=== PATIENT | male | born 1985 | race Caucasian/White ===

== ENCOUNTER 2016-10-04 17:34 | Emergency (ER) | payer MEDICARE, OTHER ==
[~2016-10-04] VITALS: Ht 175.3 cm; Wt 148.3 kg
[~2016-10-04 17:34] MED LIST: BUPR1FIL3 SL; OLME1TAB PO; PANT20TA2 PO
--- NOTE | 2016-10-04 18:35 | PHYS DOC ---
General Chief Complaint: BACK PAIN OR INJURY Stated Complaint: LEFT SIDE BACK PAIN Time Seen by MD: 18:29 Source: patient Problems: History of Present Illness Initial Comments Patient here for left thoracic back pain. Patient states it started several hours prior to arrival in the emergency department. He says it feels sharp pain , like a muscle strain, just to the left of the spine in the lower thoracic region. 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 He's had no fever or chills with this. There is no runny nose or sore throat. There is no shortness of breath, though does seem to hurt more when he takes a deep breath. Also hurts more when he hangs down his left arm. He has no nausea or vomiting. There is no abdominal pain. There's no change amount of bladder habits. States he has some mild swelling of the lower extremities but this is chronic for him due to being up on his feet all day and him being a larger person. There are no acute focal extremity or neurologic complaints. As noted, there is no history of injury or trauma to the area. Patient really done nothing at home for this and notes no other increasing or decreasing factors other than as described. His main concern today is to rule out pulmonary emboli. He says that last year he was admitted to the hospital with similar type chest pain. He was told initially that he had a saddle embolus and was going to have to have surgery, but the next day was told that there was no emboli and he was able to go home. He thinks this pain is similar and is concerned about the possibility of PE. Patient's past medical history is remarkable for hypertension. He is also on Suboxone therapy and has been for a number of years. He is a nonsmoker and nonuser of ethanol. Allergies: Coded Allergies: Penicillins (Verified Allergy, Unknown, Unknown, 10/15/13) Past Medical History Medical History: hypertension, other Surgical History: no surgical history Family History Significant Family History: no pertinent family hx Social History Smoker: non-smoker Alcohol: none Drugs: none Review of Systems All Other Systems: Reviewed and Negative Physical Exam General Appearance: WD/WN, no apparent distress Neck: full range of motion, supple, normal inspection Respiratory: lungs clear, normal breath sounds, no respiratory distress, other Cardiovascular: regular rate, rhythm Gastrointestinal: non tender, soft Back: no CVA tenderness, no vertebral tenderness, other Extremities: non-tender, pedal edema Neurologic/Psychiatric: alert, normal mood/affect, oriented x 3 Skin: normal color Comments Generally he is well-developed well-nourished grossly obese white male in no acute distress. Vitals are as noted. Pertinent findings on physical exam shows the neck to be supple without adenopathy or JVD. Chest is clear to auscultation bilaterally. Patient is tender to palpation over the left low thoracic paraspinal musculature, just medial and below to the point of the scapula. Is no signs of trauma. Palpation of the site does increasing reproduces pain. There is no bony vertebral tenderness. Cardiovascular exam shows regular rate and rhythm without murmur. The back shows no other CVA tenderness or bony pain. Externally show trace bilateral lower extremity edema without redness, cords, asymmetry, or signs of DVT. Patient is awake alert oriented and cooperative. Remainder of physical exam is clinically unremarkable. Orders, Labs, Meds Old charts note several prior ER visit for strep, chest pain, muscle spasm, and tongue swelling. D-dimer today is negative. Chest x-ray shows no acute changes per the emergency physician. 0720 Patient resting comfortably in the ER. I discussed with the patient I think there is no evidence of emboli at this time. He does seem somewhat reassured. His d-dimer is negative, his pain really does not sound pleuritic in nature and he has no tachycardia nor tachypnea, and he has no lower externally signs of clinical DVT at this time. I discussed with them that I really think this probably more musculoskeletal strain. We discussed home care including rest , ice initially followed by heat, and use of Advil or Tylenol as needed at home for pain. I did offer prescriptions for pain and a muscle relaxer, but he declines and says he will use [id number] medication. I did review that he has, the bigger person, and perhaps some weight loss would help him not has is much straining on his back when he tries to get in and out of a truck. He voices understanding. He voices understanding need to follow up with primary care or return to the ER sooner as needed if worsening anyway. He looks well, no acute discomfort or stress, okay for discharge home at this time. ANASTASIYA NICHOLS MD Oct 04, 2016 18:35
[2016-10-04 19:06] VITALS: BP 147/83
--- NOTE | 2016-10-05 09:16 | RAD ---
Chest, 2 views, 10/04/2016: History: Cough, back pain Comparison is made to a study from 06/09/2014. The heart size and pulmonary vascularity are normal. The lungs are clear. There is no evidence of pleural fluid. IMPRESSION: No acute cardiopulmonary abnormality is detected.
== END 2016-10-04 19:46 | disposition home or self-care (01) ==
LOC: ER 17:34
DX: M54.6 Pain in thoracic spine (principal); R07.9 Chest pain, unspecified; I10 Essential (primary) hypertension; Z88.0 Allergy status to penicillin
CPT/HCPCS: 36415; 71020; 85379; 99284; 99285

== ENCOUNTER 2017-04-21 09:11 | Emergency (ER) | payer MEDICARE, OTHER ==
[~2017-04-21] VITALS: Ht 180.3 cm; Wt 122.5 kg
[~2017-04-21 09:11] MED LIST changes: -OLME1TAB PO; +OLME1TAB21 PO; -PANT20TA2 PO; +PANT20TA58 PO
[2017-04-21] MEDS ORDERED: IV RINGERS SOLUTION,LACTATED 1,000 ML IV ONE (10:00)
[2017-04-21 10:29] LABS: BASO # 0.1 x10^3/uL (0.0-0.2); BASO % 1 % (0-3); EOS % 0 % (0-3); HEMATOCRIT 42.2 % (39.0-53.0); HEMOGLOBIN 14.3 g/dL (13.0-17.5); LYMPH # 1.2 x10^3/uL (1.0-4.8); LYMPH % 10 % (24-48); MEAN CORPUSCULAR HEMOGLOBIN 29 pg (25-35); MEAN CORPUSCULAR HGB CONC 34 g/dL (31-37); MEAN CORPUSCULAR VOLUME 85 fL (79-100); MONO # 0.7 x10^3/uL (0.0-1.1); MONO % 6 % (0-9); NEUT # 9.7 x10^3uL (1.8-7.7); NEUT % 83 % (31-73); PLATELET COUNT 419 x10^3/uL (140-400); RED BLOOD COUNT 4.95 x10^6/uL (4.30-5.70); RED CELL DISTRIBUTION WIDTH 14.5 % (11.5-14.5); WHITE BLOOD COUNT 11.6 x10^3/uL (4.0-11.0)
[2017-04-21 10:34] LABS: AMPHETAMINE/METHAMPHETAMINE POS (NEG); BARBITURATES NEG (NEG); BENZODIAZEPINES NEG (NEG); CANNABINOIDS NEG (NEG); COCAINE POS (NEG); METHADONE NEG (NEG); OPIATES POS (NEG); PHENCYCLIDINE NEG (NEG)
[2017-04-21 10:39] LABS: ALBUMIN 4.3 g/dL (3.4-5.0); CALCIUM 9.4 mg/dL (8.5-10.1); CREATININE 0.7 mg/dL (0.7-1.3); GFR 131.5; POTASSIUM 3.6 mmol/L (3.5-5.1); TOTAL BILIRUBIN 0.7 mg/dL (0.2-1.0); TOTAL PROTEIN 8.5 g/dL (6.4-8.2)
[2017-04-21 10:53] VITALS: BP 156/92
--- NOTE | 2017-04-21 10:53 | PHYS DOC ---
Past History Past Medical History: Hypertension Past Surgical History: No Surgical History Smoking: Non-smoker Alcohol Use: Rarely Drug Use: None Adult General Chief Complaint Chief Complaint: PSYCH EVALUATION HPI HPI Patient is a 32-year-old male brought to the ED by his . The patient states he's had "high anxiety" and paranoia. "He is not himself". He spent all day yesterday crying, but does not like him. "I feel like I'm going to ". He didn 't have much sleep last night. The patient states his thinks he might of gotten into some drugs. The patient states "I am a messed up individual", states he is always a little bit paranoid. Patient's states that he was diagnosed with bipolar a long time ago, patient denies this. Patient was treated starting in 2007 with Depakote, lithium, and Abilify. He states he quit taking medicines because "they made him feel like a zombie". agrees with this. Patient thinks that he quit about a year ago. Patient does have a history of Suboxone treatment. He's been on that for a long time. His last dose of Suboxone was more than a week ago. He evidently has not followed up as directed. Patient was here in this ED early this morning but left prior to being fully evaluated. He did have a normal EKG. The patient did have a wait because there was a medical emergency going on. He and his left here and started driving to [facility]. When they were in [place], the patient called the police because he thought they were being followed. He describes the vehicles that were following them, "an SUV with shiny wheels just pulled out and followed us." When the police came, the patient states he didn't like the attitude of the female police communications operator. She again snapped the strap on her gun which she didn't like. He thought she had a bad attitude. The patient and his do not describe homicidal or suicidal ideation. The patient frequently takes his 's hand and cases it or touches it to his face. His greatest. Right now is that his and children will leave him. She is repeatedly reassuring him that they will not. Patient has a history of hypertension and takes a daily antihypertensive but does not know what it is. Review of Systems Review of Systems Constitutional: Denies fever or chills [] HENT: Denies nasal congestion or sore throat [] Respiratory: He has had a cough Cardiovascular: Denies chest pain GI: Denies nausea or vomiting] Neurologic: Denies headache Current Medications Current Medications Current Medications Medications (Trade) Dose Ordered Sig/Ronald Start Time Stop Time Status Last Admin Dose Admin Lactated Ringer's 1,000 ml @ 1,000 mls/hr 1X ONCE 04/21/17 10:00 04/21/17 10:59 04/21/17 10:00 1,000 MLS/HR Allergies Allergies Allergies Coded Allergies Type Severity Reaction Last Updated Verified Penicillins Allergy Unknown Unknown 04/21/17 Yes Physical Exam Physical Exam Constitutional: Obese male, alert, cooperative, hypervigilant, appears slightly agitated and anxious, but appropriate with examiner and nursing staff, not threatening. Blood pressure is mildly elevated, not tachycardic. HENT: Normocephalic, atraumatic, bilateral external ears normal, nose normal. [ ] Eyes: conjunctiva normal, no discharge. [] Neck: Normal range of motion, no stridor. [] Cardiovascular:Heart rate regular rhythm, no murmur , not tachycardic Lungs & Thorax: Bilateral breath sounds clear to auscultation [] Skin: Warm, dry, no erythema, no rash. [] Extremities: No tenderness, no cyanosis, no clubbing, ROM intact, no edema. [] Neurologic: Alert and oriented X 3, normal motor function, no focal deficits noted. [] Psychologic: Alert. Hypervigilant. Paranoid. Slightly argumentative but does not appear physically dangerous. Appears slightly agitated but he stays seated. He is fully aware of the situation and is here voluntarily. Current Patient Data Vital Signs Vital Signs Date Time Temp Pulse Resp B/P (MAP) Pulse Ox O2 Delivery O2 Flow Rate FiO2 04/21/17 09:30 98.6 90 20 97 Room Air Lab Results Laboratory Tests Test 04/21/17 10:10 White Blood Count 11.6 x10^3/uL (4.0-11.0) H Red Blood Count 4.95 x10^6/uL (4.30-5.70) Hemoglobin 14.3 g/dL (13.0-17.5) Hematocrit 42.2 % (39.0-53.0) Mean Corpuscular Volume 85 fL (79-100) Mean Corpuscular Hemoglobin 29 pg (25-35) Mean Corpuscular Hemoglobin Concent 34 g/dL (31-37) Red Cell Distribution Width 14.5 % (11.5-14.5) Platelet Count 419 x10^3/uL (140-400) H Neutrophils (%) (Auto) 83 % (31-73) H Lymphocytes (%) (Auto) 10 % (24-48) L Monocytes (%) (Auto) 6 % (0-9) Eosinophils (%) (Auto) 0 % (0-3) Basophils (%) (Auto) 1 % (0-3) Neutrophils # (Auto) 9.7 x10^3uL (1.8-7.7) H Lymphocytes # (Auto) 1.2 x10^3/uL (1.0-4.8) Monocytes # (Auto) 0.7 x10^3/uL (0.0-1.1) Eosinophils # (Auto) 0.0 x10^3/uL (0.0-0.7) Basophils # (Auto) 0.1 x10^3/uL (0.0-0.2) Urine Opiates Screen Pos (NEG) Urine Methadone Screen Neg (NEG) Urine Barbiturates Neg (NEG) Urine Phencyclidine Screen Neg (NEG) Urine Amphetamine/Methamphetamine Pos (NEG) Urine Benzodiazepines Screen Neg (NEG) Urine Cocaine Screen Pos (NEG) Urine Cannabinoids Screen Neg (NEG) Urine Ethyl Alcohol Neg (NEG) EKG EKG [] Radiology/Procedures Radiology/Procedures [] Course & Med Decision Making Course & Med Decision Making Pertinent Labs and Imaging studies reviewed. (See chart for details) 32-year-old male brought for the complaint of paranoia and anxiety. The states he has a history of bipolar diagnosis, the patient denies that. He has not been taking medications for about a year for this. He also has a Suboxone doctor but hasn't taken Suboxone for over a week. While the patient does not voice homicidal or suicidal ideation, I believe the patient is not safe. He is highly paranoid. This is his third ED visit or attempted ED visit in less than 12 hours. His paranoia caused him to call the police and then he was paranoid about the police. I'm concerned if he is released, he might act on the paranoia about people following him or there might be some altercation involving the police. At this time the patient is somewhat agreeable to my discussion about likely inpatient hospitalization. His is encouraging him on that. The patient is agreeable to have labs drawn, give a urine sample, and get some IV fluids. We will start with that. CBC, chemistries are unremarkable. Urine drug screen positive for opiates, cocaine, and amphetamine/methamphetamine. The patient had stated that he "might have gotten into something, someone might have poisoned him". He did not admit to drug use and I did not argue with him about it. In attempting to place the patient at an inpatient mental health facility, I called [facility], they have no beds I called [facility], they have no beds I called [facility] and they have no beds I called [facility] and spoke with intake who will forward the information to the assessment team. We faxed the face sheet and labs to [facility]. I called [facility] back after some delay and they stated they do not have a bed for the patient. ED nursing staff called 3 other facilities and they were all full and not able to accept the patient for transfer. During the time we were trying to place the patient in the mental health facility, the patient had a liter of IV fluids, resting comfortably in his room with his , also the patient's sister arrived and rested in the room with them. I returned to discuss with the patient, his , and his sister the fact that we were not able to locate an inpatient mental health facility for transfer today. I discussed my recommendation with the patient that we would admit him to the hospital here at [facility] for further IV fluids and further evaluation and treatment of his anxiety and paranoia but we would hope that tomorrow we would be able to locate an inpatient bed for the patient in a mental health facility. The patient tells me that he feels much better. He is no longer anxious and he does not feel paranoid any longer. He feels much better and he would like to go home. He promises to follow up tomorrow. Patient states he can follow-up with Dr. Deb tomorrow. He has seen him in the past and he is comfortable calling tomorrow morning to arrange for a emergent appointment. There is also the option of the [facility] but the patient states he would prefer not to go there. I discussed this discharge plan with the patient, his sister, and his in detail. It would be my preference to admit the patient, and I made that clear, but the patient does not currently appear to be a danger to himself or others and I believe he is capable of making his own decisions. The patient's would prefer that he be admitted but she stated "it's your choice" and left the decision up to the patient. I repeatedly advised them that I would be happy to admit the patient but the patient declines hospitalization at this time. He is certainly much more stable , not voicing paranoid thoughts. I discussed with the patient and his family members that his urine drug screen is positive for cocaine, amphetamine/methamphetamine, and opiates. The patient made excuses for his positive urine drug screen. He did not admit to using any substances, however, when I mentioned the opiates, he stated well that is not a surprise, because I have been in treatment for opiate addiction for a long time. He initially stated that his amphetamine screen was positive because of Adderall, however, the patient is not supposed to be on Adderall, and he did not give any history of why that would be prescribed for him. The patient's sounds like she thought based on these results that he probably was using cocaine and methamphetamine. They had some disagreement about that but they seem to be very non-confrontational and nonviolent. The patient's sister is involved and is another option for the patient to go home with if necessary. The patient is much better than when he came in, I suspect his acute anxiety and paranoia with the result of cocaine and methamphetamine use and have cleared somewhat with those drugs getting out of his system. I discussed this with the patient and his family. The patient was discharged in stable and improved condition, and urged to follow up tomorrow, he does have resources for mental health follow-up. [] Dragon Disclaimer Dragon Disclaimer This chart was dictated in whole or in part using Voice Recognition software in a busy, high-work load, and often noisy Emergency Department environment. It may contain unintended and wholly unrecognized errors or omissions. Departure Departure: Impression: Primary Impression: Positive urine drug screen Additional Impressions: Drug abuse, amphetamine type Drug abuse, cocaine type Drug abuse, opioid type Paranoia Disposition: 01 HOME, SELF-CARE Condition: IMPROVED Referrals: RODRIGO BOYD DO (PCP) Additional Instructions: I recommended that we admit you to the hospital for further IV fluids and to facilitate transfer to an inpatient facility for treatment of your symptoms including paranoia and drug abuse. You declined being admitted to the hospital and you promised that you will follow-up tomorrow. Drink plenty of fluids. Follow-up tomorrow morning, you do have the names and telephone numbers of possible follow-up. Possibilities include Dr. Boyd, or the [facility]. Another possibility is Dr. Baca, phone [phone] Return to emergency if you change your mind about being admitted. Problem Qualifiers KATIE TEE MD Apr 21, 2017 10:53
== END 2017-04-21 13:25 | disposition home or self-care (01) ==
LOC: ER 09:11
DX: F22 Delusional disorders (principal); F14.10 Cocaine abuse, uncomplicated; F11.10 Opioid abuse, uncomplicated; F12.10 Cannabis abuse, uncomplicated; I10 Essential (primary) hypertension; F41.9 Anxiety disorder, unspecified; Z88.0 Allergy status to penicillin
CPT/HCPCS: 36415; 80053; 80307; 85025; 96360; 96361; 99285; J7120; G0479

== ENCOUNTER 2017-09-18 21:14 | Emergency (ER) | payer MEDICARE, OTHER ==
[~2017-09-18] VITALS: Ht 172.7 cm; Wt 141.5 kg
[2017-09-18 21:50] VITALS: BP 126/71
[2017-09-18] MEDS ORDERED: IBUP600T16 PO (21:52)
--- NOTE | 2017-09-18 21:52 | PHYS DOC ---
Past History Past Medical History: Hypertension Past Surgical History: No Surgical History Smoking: Non-smoker Alcohol Use: Rarely Drug Use: None Adult General Chief Complaint Chief Complaint: ANKLE PROBLEM HPI HPI Patient is a 32-year-old gentleman who presents to the ER today secondary to pain to his right ankle secondary to an inversion injury that occurred while he was stepping outside his truck approximately 1 PM today. Patient reports he has been weightbearing since. Patient reports that he's had increased pain ever since coming home and elevating his leg. Patient's first pain is in the lateral aspect of his ankle. Patient denies any other discomfort. Review of systems: Constitutional: Denies fever or chills Eyes: Denies change in visual acuity, redness, or eye pain HENT: Denies nasal congestion or sore throat Respiratory: Denies cough or shortness of breath All other systems were reviewed and found to be within normal limits, except as documented in this note. Physical exam: Constitutional: Well developed, well nourished, no acute distress, non-toxic appearance. HENT: Normocephalic, atraumatic, bilateral external ears normal, nose normal. Eyes: PERRLA, EOMI, conjunctiva normal, no discharge. Neck: Normal range of motion, no tenderness, supple, no stridor. Cardiovascular: Heart rate regular rhythm, Lungs & Thorax: Bilateral breath sounds clear to auscultation Abdomen: No abdominal distention. Skin: Warm, dry, no erythema, no rash. Back: Normal spinal curvature Extremities: No tenderness, no cyanosis, no clubbing, ROM intact, no edema. Neurologic: Alert and oriented X 3, normal motor function, normal sensory function, no focal deficits noted. Psychologic: Affect normal, judgement normal, mood normal. Patient's ER physical exam was most remarkable: Mild tenderness to palpation to his right lateral malleolus. Minimal soft tissue swelling. No deformities. Neurovascular intact. Patient has no tenderness to palpation his fifth metatarsal. x-ray as interpreted by ER physician reveals: No acute fracture dislocation of right ankle. Assessment and plan: 1. Right ankle sprain. Patient's clinical hemodynamic stable. X-rays negative for acute fracture. Patient will be placed in a Velcro splint and will be discharged home in stable condition. Review of Systems Review of Systems Allergies Allergies Allergies Coded Allergies Type Severity Reaction Last Updated Verified Penicillins Allergy Unknown Unknown 04/21/17 Yes EKG EKG [] Radiology/Procedures Radiology/Procedures [] Course & Med Decision Making Course & Med Decision Making Pertinent Labs and Imaging studies reviewed. (See chart for details) [] Dragon Disclaimer Dragon Disclaimer This electronic medical record was generated, in whole or in part, using a voice recognition dictation system. Departure Departure: Impression: Primary Impression: Right ankle sprain Disposition: HOME, SELF-CARE Condition: STABLE Referrals: PCP,NO (PCP) Patient Instructions: Ankle Sprain, Splint Care-Brief Scripts Ibuprofen (IBUPROFEN) 600 Mg Tablet 600 MG PO QID Y for PAIN, #20 Prov: GUI LEÓN MD 09/18/17 GUI LEÓN MD Sep 18, 2017 21:52
--- NOTE | 2017-09-19 07:56 | RAD ---
Right ankle, 3 views, 09/18/2017: History: Ankle injury, pain and swelling No acute fracture or dislocation is identified. There is minimal spurring at the tip of the lateral malleolus. There is moderate soft tissue swelling, particularly over the lateral malleolus. IMPRESSION: No acute bony abnormality is detected.
== END 2017-09-18 22:14 | disposition home or self-care (01) ==
LOC: ER 21:14
DX: S93.401A Sprain of unspecified ligament of right ankle, initial encounter (principal); I10 Essential (primary) hypertension; X50.9XXA Other and unspecified overexertion or strenuous movements or postures, initial encounter; Z88.0 Allergy status to penicillin; Y93.89 Activity, other specified; Y99.8 Other external cause status; Y92.89 Other specified places as the place of occurrence of the external cause
CPT/HCPCS: 29515; 73610; 99284

== ENCOUNTER 2017-11-07 10:44 | Emergency (ER) | payer MEDICARE, OTHER ==
[~2017-11-07] VITALS: Ht 172.7 cm; Wt 147.4 kg
[~2017-11-07 10:44] MED LIST changes: +IBUP600T16 PO
[2017-11-07] MEDS ORDERED: KETOROLAC 60 MG/2 ML VIAL. IM ONE (11:30)
--- NOTE | 2017-11-07 11:32 | PHYS DOC ---
Past History Past Medical History: Hypertension Past Surgical History: No Surgical History Smoking: Non-smoker Alcohol Use: Rarely Drug Use: None Social History Narrative: history of drug abuse on Suboxone Adult General Chief Complaint Chief Complaint: GROIN PAIN HPI HPI 32-year-old male patient history of kidney stone and states he had problem with his urination for the last 4 days and seen by his primary care physician 4 days ago and was told that he had blood in his urine that his sign of kidney stone. Patient complaining of sudden onset of bilateral scrotal and groin pain since 9 AM today as a sharp and constant pain without radiation. Patient rated his pain 8.5 and denies nausea and vomiting, urinary frequency and dysuria, fever and chills. Patient is very anxious and walking in the room and is a poor historian. Review of Systems Review of Systems Constitutional: Denies fever or chills [] Eyes: Denies change in visual acuity, redness, or eye pain [] HENT: Denies nasal congestion or sore throat [] Respiratory: Denies cough or shortness of breath [] Cardiovascular: No additional information not addressed in HPI [] GI: Denies abdominal pain, nausea, vomiting, bloody stools or diarrhea [] : Reports hematuria and scrotal pain Musculoskeletal: Denies back pain or joint pain [] Integument: Denies rash or skin lesions [] Neurologic: Denies headache, focal weakness or sensory changes [] Endocrine: Denies polyuria or polydipsia [] All other systems were reviewed and found to be within normal limits, except as documented in this note. Current Medications Current Medications Current Medications Medications (Trade) Dose Ordered Sig/[facility] Start Time Stop Time Status Last Admin Dose Admin Ketorolac Tromethamine (Toradol) 60 mg 1X ONCE 11/07/17 11:30 11/07/17 11:31 Allergies Allergies Allergies Coded Allergies Type Severity Reaction Last Updated Verified Penicillins Allergy Unknown Unknown 04/21/17 Yes Physical Exam Physical Exam Constitutional: Well nourished, moderate distress, non-toxic appearance, anxious, morbidly obese, limited exam because of patient anxiety and walking in the room during evaluation. [] HENT: Normocephalic, atraumatic Eyes: PERRLA, EOMI, conjunctiva normal, no discharge. [] Neck: Normal range of motion, no tenderness, supple, no stridor. [] Cardiovascular:Heart rate regular rhythm, no murmur [] Lungs & Thorax: Bilateral breath sounds clear to auscultation [] Abdomen: Patient refused genital and abdominal exam Skin: Warm, dry, no erythema, no rash. [] Back: No tenderness, no CVA tenderness. [] Extremities: No tenderness, no cyanosis, no clubbing, ROM intact, no edema. [] Neurologic: Alert and oriented X 3 Psychologic: Very anxious Current Patient Data Vital Signs Vital Signs Date Time Temp Pulse Resp B/P (MAP) Pulse Ox O2 Delivery O2 Flow Rate FiO2 11/07/17 10:55 97.8 77 18 98 Room Air EKG EKG [] Radiology/Procedures Radiology/Procedures [] [address] [address] IMAGING REPORT Signed PATIENT: YESENIA WHEAT ACCOUNT: [id number] : 1985 LOCATION: ER AGE: 32 SEX: M EXAM STATUS: REG ER ORD. PHYSICIAN: GUMARO EM MD REASON: groin pain PROCEDURE: CT ABDOMEN PELVIS WO CONTRAST CT Abdomen and Pelvis without contrast History: Groin pain Technique: Noncontrast CT imaging was performed of the abdomen and pelvis. Multiplanar images are reviewed. Exposure: One or more of the following individualized dose reduction techniques were utilized for this examination: 1. Automated exposure control 2. Adjustment of the mA and/or kV according to patient size 3. Use of iterative reconstruction technique. Comparison: None Findings: There is 4 to 5 mm calculus in the distal right ureter in the pelvis with mild right hydroureteronephrosis, strandy and hazy density about the right ureter. This is located about 40 mm from the ureterovesical junction. There is mild strandy and hazy change of the right perinephric fat. There is small 2 to 3 mm inferior right renal calculus, no left renal calculus or left hydronephrosis. There is no significant abnormality of the limited visualized lung bases. Accurate evaluation of abdominal visceral organs is limited without intravenous contrast. There is no obvious abnormality of the spleen, liver, or pancreas. There is no adrenal nodularity. Accurate evaluation of bowel is limited without oral contrast. There is no significant free air, free fluid, bowel dilatation. Normal appendix is visualized. There is some fat in the left inguinal canal, no bowel. There is right L5 spondylolysis, no significant spondylolisthesis. Impression: 1. There is mild right hydroureteronephrosis, 4 to 5 mm calculus distal right ureter in the pelvis. There is some strandy change of the right perinephric fat and about the right ureter, underlying infection not excluded. There is small right renal calculus. 2. There is right L5 spondylolysis, no significant spondylolisthesis. Electronically signed by: Leyda Gutierres MD (11/07/2017 12:10 PM) [id number] DICTATED AND SIGNED BY: LEYDA GUTIERRES MD DATE: 11/07/17 1209 CC: GUMARO EM MD; PCP,YOANA ~ Course & Med Decision Making Course & Med Decision Making Pertinent Labs and Imaging studies reviewed. (See chart for details) Evaluation of patient in ER showed 32-year-old male patient with complaining of groin and testicle pain since this morning. Patient had history of previous kidney stone. CT abdomen and pelvis showed 4-5 mm in the right UV junction. She felt better with Toradol. Patient instructed to follow up with urologist and strain his urine and increase fluid intake. [] Dragon Disclaimer Dragon Disclaimer This electronic medical record was generated, in whole or in part, using a voice recognition dictation system. Departure Departure: Impression: Primary Impression: Renal colic on right side Additional Impressions: Ureterolithiasis UTI (urinary tract infection) Disposition: HOME, SELF-CARE (at 1324) Condition: IMPROVED Referrals: PCPYOANA (PCP) Patient Instructions: Diet for Kidney Stones, Kidney Stones Additional Instructions: Drink plenty of liquids Follow-up with your primary care physician in 3-5 days Return to ER if not getting better Strain all of your urine Follow-up with on-call urology in one or 2 days, call [phone] to make an appointment Scripts Ibuprofen (IBUPROFEN) 800 Mg Tablet 1 TAB PO TID, #30 TAB Prov: GUMARO EM MD 11/07/17 Tamsulosin Hcl (FLOMAX) 0.4 Mg Cap.er.24h 1 CAP PO DAILY, #30 CAP 11 Refills Prov: GUMARO EM MD 11/07/17 Problem Qualifiers GUMARO EM MD November 07, 2017 11:32
[2017-11-07 11:42] LABS: BARBITURATES NEG (NEG); BENZODIAZEPINES NEG (NEG); CANNABINOIDS NEG (NEG); COCAINE NEG (NEG); METHADONE NEG (NEG); OPIATES NEG (NEG); PHENCYCLIDINE NEG (NEG)
[2017-11-07 11:43] LABS: BILIRUBIN,URINE NEG (NEG); CLARITY,URINE CLEAR; COLOR,URINE YELLOW; GLUCOSE,URINE NEG (NEG)
[2017-11-07 11:44] LABS: AMPHETAMINE/METHAMPHETAMINE POS (NEG); BACTERIA,URINE FEW /HPF (0-FEW); NITRITE,URINE NEG (NEG); SQUAMOUS EPITHELIAL CELL,UR MOD /LPF; UROBILINOGEN,URINE 0.2 mg/dL (0.2 mg/dL)
--- NOTE | 2017-11-07 12:13 | RAD ---
CT Abdomen and Pelvis without contrast History: Groin pain Technique: Noncontrast CT imaging was performed of the abdomen and pelvis. Multiplanar images are reviewed. Exposure: One or more of the following individualized dose reduction techniques were utilized for this examination: 1. Automated exposure control 2. Adjustment of the mA and/or kV according to patient size 3. Use of iterative reconstruction technique. Comparison: None Findings: There is 4 to 5 mm calculus in the distal right ureter in the pelvis with mild right hydroureteronephrosis, strandy and hazy density about the right ureter. This is located about 40 mm from the ureterovesical junction. There is mild strandy and hazy change of the right perinephric fat. There is small 2 to 3 mm inferior right renal calculus, no left renal calculus or left hydronephrosis. There is no significant abnormality of the limited visualized lung bases. Accurate evaluation of abdominal visceral organs is limited without intravenous contrast. There is no obvious abnormality of the spleen, liver, or pancreas. There is no adrenal nodularity. Accurate evaluation of bowel is limited without oral contrast. There is no significant free air, free fluid, bowel dilatation. Normal appendix is visualized. There is some fat in the left inguinal canal, no bowel. There is right L5 spondylolysis, no significant spondylolisthesis. Impression: 1. There is mild right hydroureteronephrosis, 4 to 5 mm calculus distal right ureter in the pelvis. There is some strandy change of the right perinephric fat and about the right ureter, underlying infection not excluded. There is small right renal calculus. 2. There is right L5 spondylolysis, no significant spondylolisthesis. Electronically signed by: Blaine Hollis MD (11/07/2017 12:10 PM) [id number]
[2017-11-07] MEDS ORDERED: TAMSULOSIN 0.4 MG CAP.ER.24H. PO ONE (12:30)
[2017-11-07] MEDS ORDERED: HYDROcodone/APAP 5/325MG 1 TAB TABLET PO ONE (12:30)
[2017-11-07] MEDS ORDERED: IBUPROFEN 800 MG TABLET. PO ONE (12:30)
[2017-11-07] MEDS ORDERED: IBUP800T19 PO (12:36)
[2017-11-07] MEDS ORDERED: TAMS0.4C97 PO (12:36)
[2017-11-07] MEDS ORDERED: SMZ/TMP 800/160MG TABLET. PO ONE (12:45)
[2017-11-07 13:01] LABS: BASO % 0 % (0-3); EOS % 0 % (0-3); HEMATOCRIT 41.9 % (39.0-53.0); HEMOGLOBIN 14.3 g/dL (13.0-17.5); LYMPH # 1.1 x10^3/uL (1.0-4.8); LYMPH % 8 % (24-48); MEAN CORPUSCULAR HEMOGLOBIN 29 pg (25-35); MEAN CORPUSCULAR HGB CONC 34 g/dL (31-37); MEAN CORPUSCULAR VOLUME 85 fL (79-100); MONO # 0.5 x10^3/uL (0.0-1.1); MONO % 4 % (0-9); NEUT # 11.1 x10^3uL (1.8-7.7); NEUT % 87 % (31-73); PLATELET COUNT 343 x10^3/uL (140-400); RED BLOOD COUNT 4.95 x10^6/uL (4.30-5.70); RED CELL DISTRIBUTION WIDTH 13.7 % (11.5-14.5); WHITE BLOOD COUNT 12.8 x10^3/uL (4.0-11.0)
[2017-11-07 13:13] LABS: ALBUMIN 3.5 g/dL (3.4-5.0); ALBUMIN/GLOBULIN RATIO 0.9 (1.0-1.7); CALCIUM 8.9 mg/dL (8.5-10.1); CREATININE 0.9 mg/dL (0.7-1.3); GFR 98.4; POTASSIUM 3.4 mmol/L (3.5-5.1); TOTAL BILIRUBIN 0.2 mg/dL (0.2-1.0); TOTAL PROTEIN 7.5 g/dL (6.4-8.2)
[2017-11-07 13:52] VITALS: BP 143/66
== END 2017-11-07 13:54 | disposition home or self-care (01) ==
LOC: ER 10:44
DX: N13.2 Hydronephrosis with renal and ureteral calculous obstruction (principal); N39.0 Urinary tract infection, site not specified; N50.812 Left testicular pain; N50.811 Right testicular pain; I10 Essential (primary) hypertension; Z87.442 Personal history of urinary calculi; Z88.0 Allergy status to penicillin
CPT/HCPCS: 36415; 74176; 80053; 80307; 81001; 85025; 96372; 99285; J1885; G0479